=== PATIENT | male | born 1965 | race Caucasian/White ===

== ENCOUNTER 2025-02-16 08:23 | Emergency (ER) | payer OTHER, SELFPAY ==
--- OUTSIDE RECORDS SUMMARY | 2022-04-12 01:04 | XMS_ITS | Continuity of Care Document ---
Author Organization [facility] Address [address] [place] [address] Phone Care Team Providers Care Medical Records Director Name Role Phone [place] PAC, Shellie Unavailable Unavailable Allergies, Adverse Reactions, Alerts Substance Reaction Status Criticality polymyxin B Active No Information NEOMYCIN SULFATE Active No Informat ion BACITRACIN ZINC Active No Informati on bacitracin Active No Information Procedures Procedure Date Offic/outpt [facility] Services provided in an urgent care cent er Advance Directives Directive Yes / No Effective Date File Name No Information Encounters Encounter Description Practice Location Reason(s) For Visit Diagnoses Date Provider Providers Copied on Encounter [facility], [address], [place], [place], [id number], [place] tel:[phone] [facility] No Information Patrick PAC Shellie. [address], [address], [place], [address], [place]. tel:[phone] Offic/outpt [facility], [address], [place], [place], [id number], [place] tel:[phone] [facility] joint or extremity pain (chief complaint) Bilateral leg pain No Information Family History Family Member Type Diagnosis Age At Onset No Information Payers Payer name Insurance type Covered republican ID Authoriza tion(s) No Information Social History Type Description Quantity Date Captured Comments Alcohol Use Details Unknown Caffeine Use Details Unknown Tobacco Use Status No Information Smoking Status No Information Sex Male Chief Complaint And Reason For Visit No Information Reason For Referral Reason For Referral No Information Plan Of Treatment Date Type Action Status Referral Ordered: Referrals: Emergency Medicine. Assume care ordered History Of Present Illness Encounter Date Complaint History Of Prese nt Illness joint or extremity pain Onset: 2 days ago. Severity level is 8. Location: bilateral thigh. The pain radiates to the posterior knee. The pain is dull and throbbing. Context: there is no injury. The pain is aggravated by walking and standing. The pain is relieved by rest. Associated symptoms include spasms. Pertinent negatives include bruising, crepitus, decreased mobility, difficulty initiating sleep, joint instability, joint tenderness, limping and swelling. Additional information: PT REPORTS SUDDEN ONSET O POSTERIOR THIGH NYA R ORSE THAN LEFT. RADIATE DOWN TO CALF. 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 HE IS OVERWEIGHT. DENIES HEART DZ, SMOKING, RECENT SURGERY, HORMONE SUPPLEMTATION OR HX OF BLOOD CLOTS. PT DENIES ANY INJURY. Functional Status Date Functional Assessmen t No Information Instructions Date Instruction Additional Infor richmond GO TO ED FOR EVALUATION OF DVT R elated to Bilateral leg pain Assessments Type Assessment Date No Information Patient Care Teams Name Effective Dates (start - stop) Status Members No Information
--- NOTE | ~2025-02-16 | CT_ITS ---
EXAMINATION: CT brain wo con DATE: 02/16/2025 08:59 INDICATION: Fall. TECHNIQUE: Computed tomography (CT) of the head was performed without intravenous contrast. The mA was adjusted according to patient size. Iterative reconstruction technique was employed. The dose-length product was 756.67 mGy-cm. COMPARISON: None FINDINGS: There is no intracranial hemorrhage, acute infarction, or abnormal intracranial mass lesion. The ventricles are normal in size. There is a left frontal scalp hematoma. There is mild mucosal thickening in the paranasal sinuses. There is a fracture of left nasal process of maxilla, likely old. The mastoid air cells are normal. The orbits are normal. IMPRESSION: 1. Normal brain. Reviewed, dictated and finalized at location E. ENCHILADA IMPRESSION: 1. Normal brain.
--- NOTE | ~2025-02-16 | CT_ITS ---
EXAMINATION: CT facial & cervical spine wo DATE: 02/16/2025 09:01 INDICATION: Fall. TECHNIQUE: Computed tomography (CT) of the maxillofacial region and cervical spine was performed without intravenous contrast. Automated exposure control and iterative reconstruction technique were employed. The dose-length product was 616.08 mGy-cm. COMPARISON: None FINDINGS: MAXILLOFACIAL CT: There is a left frontal scalp hematoma. The orbits are normal. There is a fracture of left nasal processes of maxilla, likely chronic. There is leftward deviation of the nasal septum. CERVICAL SPINE CT: There is 2 mm anterolisthesis of C7 on T1. There is 3 degrees dextrocurvature of cervical spine. Vertebral body heights are normal. There is mildly decreased disc height at C3-C4, severely decreased disc height at C5-C6, and moderately decreased disc height at C6-C7. There is multilevel facet joint osteoarthritis, severe bilaterally at C7-T1. There is multilevel uncovertebral joint osteoarthritis, severe bilaterally at C5-C6 and on the left at C3-C4. There is mild neural foraminal stenosis at multiple levels on either side. On the left, there is moderate neural foraminal stenosis at C5-C6. There is mild central canal stenosis at C3-C4, C5-C6, and C6-C7. IMPRESSION: 1. Fracture of left nasal process of maxilla, likely old. 2. Severe cervical spondylosis. Reviewed, dictated and finalized at location E. LE UNIT ASSISTANT
[2025-02-16 08:24] VITALS: BP 177/104; PULSE 83; RESP 18; TEMP 37; O2SAT 97
--- NOTE | 2025-02-16 10:44 | ED.GENADULT ---
HPI - General Adult General Chief complaint: Fall Stated complaint: fall Time Seen by Provider: 02/16/25 09:31 History of Present Illness HPI narrative: 60-year-old male presents to the emergency department for evaluation after having a ground level fall. Patient did slip on a patch [place] ice [place] the truck stop. Patient is a long-distance hi low truck driver. Patient fell and struck his left face/ eye on the mallet on the ground. Patient denies any loss of consciousness. Related Data Allergies Allergy/AdvReac Type Severity Reaction Status Date / Time bacitracin (From Neosporin AdvReac Mild Rash Verified 02/16/25 08:28 ([id number])) neomycin (From Neosporin AdvReac Mild Rash Verified 02/16/25 08:28 ([id number])) polymyxin B (From Neosporin AdvReac Mild Rash Verified 02/16/25 08:28 ([id number])) Review of Systems Review of Systems: All systems reviewed & are unremarkable except as noted in HPI and below Exam Narrative: APPEARANCE: Well appearing, no pain, no distress, well-nourished. HEAD: normocephalic, atraumatic. EYES: PERRLA/EOMI, conjunctivae clear. NOSE: Normal no drainage EARS:TMS clear with good light reflex. THROAT: Pharynx clear, no exudate. NECK: Supple. No adenopathy, no masses. RESPIRATORY: Airway patent, respirations nonlabored. Clear to auscultation bilaterally, no rales, rhonchi, wheezing. CARDIOVASCULAR: Regular rate and rhythm without murmurs rubs or gallops. ABDOMINAL: Soft, nontender, nondistended, normal bowel sounds MUSCULOSKELETAL: Moves all extremities. Strength/ROM intact, No edema, No calf tenderness. NEURO: Alert. Cranial nerves II through XII intact. Good gait. Good coordination SKIN: Contusion to the left eye Course Vital Signs Vital signs: Vital Signs Temperature 98.6 F 02/16/25 08:24 Pulse Rate 83 02/16/25 08:24 Respiratory Rate 18 02/16/25 08:24 Blood Pressure 177/104 H 02/16/25 08:24 Pulse Oximetry 97 02/16/25 08:24 Oxygen Delivery Room Air 02/16/25 08:24 Temperature 98.6 F 02/16/25 08:24 Pulse Rate 83 02/16/25 08:24 Respiratory Rate 18 02/16/25 08:24 Blood Pressure 177/104 H 02/16/25 08:24 Pulse Oximetry 97 02/16/25 08:24 Oxygen Delivery Room Air 02/16/25 08:24 MDM MDM Narrative Medical decision making narrative: 60-year-old male present to the emergency department for evaluation for having a ground level fall. Patient's CT cervical spine CT facial and CT brain were negative. patient was able to ambulate without issue. Patient had no acute changes on his visual acuity. Patient was advised to take Tylenol and ibuprofen for pain control. Patient is being provided Flexeril for muscle spasm. Patient states he will most likely have additional a physical exam through the [email or web address]. All questions concerns were addressed patient was well-appearing at time of discharge. low concern for acute facial fracture, subdural hematoma, subarachnoid hemorrhage, cervical spine fracture. Patient denies any other pain or injury. Patient was able to ambulate emergency department without issues. Patient has no significant changes on his visual acuity test. Differential Diagnosis Differential Diagnosis: subdural hematoma, subarachnoid hemorrhage, cervical spine fracture, facial fracture, nasal fracture Imaging Data Radiologist's impression: ITS Impressions Head CT 02/16/25 09:03 IMPRESSION: 1. Normal brain. Head/Cervical Spine/Facial Bones CT 02/16/25 09:05 IMPRESSION: 1. Fracture of left nasal process of maxilla, likely old. 2. Severe cervical spondylosis. Discharge Plan Discharge Clinical Impression: Head injury, Contusion of face Patient Disposition: Home Condition: Stable Instructions: Antibiotic Form, Head Injury (ED) Additional Instructions: Tylenol and ibuprofen for pain control. Flexeril for muscle spasm. Have close follow-up with your primary care physician. If you have any worsening symptoms then please call or return to the emergency department. Patient Language: [place] Prescriptions: New cyclobenzaprine 10 mg tablet 10 mg PO BID PRN (Reason: muscle spasm) Qty: 14 0RF Follow-up/Referrals: UNKNOWN,DOCTOR [Primary Care Provider] Stand Alone Forms: Work/School Release IP
== END 2025-02-16 11:04 | disposition home or self-care (01) ==
PROVIDERS: Emergency Provider Emergency Medicine
DX: S00.12XA Contusion of left eyelid and periocular area, initial encounter (principal); M47.812 Spondylosis without myelopathy or radiculopathy, cervical region; W00.0XXA Fall on same level due to ice and snow, initial encounter
CPT/HCPCS: 70450; 70486; 72125; 99284; L0140